=== PATIENT | male | born 1960 | race Caucasian/White ===

== ENCOUNTER → 2018-07-03 09:15 | Outpatient (CLI) | payer OTHER, SELFPAY ==
--- NOTE | 2018-07-03 09:15 | LES_PTH ---
PATIENT: PADMAJA HUFFMAN Jr. LOC: [facility] U#:[id number] AGE/SX: 64/M ROOM: RE07/03/[address]: Dr. Darvin Mcdowell MD : 1960 BED: DIS: SPEC #: [id number] RECD: 07/04/18 17:37 STATUS: SANA KAL #: [id number] MELODY: 07/03/18 09:[address]: Darvin Mcdowell DEPT: SURGICAL PATHOLOGY RECD BY: Hunter Uribna Tissues: Eye, NOS Procedures: Surgery Specimen Level IV HEADER OPERATION: Excision pterygium with conjunctival graft left eye PRE-OP DIAGNOSIS: Pterygium, left eye TISSUE SUBMITTED: Pterygium, left eye MICROSCOPIC DIAGNOSIS Lesion of left eye, biopsy: Consistent with pterygium. AM:jovany 07/05/18 MICROSCOPIC DESCRIPTION Slides are reviewed. GROSS DESCRIPTION Received in fixative is one container labeled with the patient's name and designated pterygium, left eye. The specimen consists of a portion of translucent soft tissue measuring 0.4 x 0.3 x 0.2 cm. A small portion of possible skin is present. The specimen is totally submitted in one cassette. / CE:jovany 07/04/18 TC:5 CPT: 60468
== END ==
PROVIDERS: Referring Provider Ophthalmology; Visit Provider Ophthalmology
DX: H11.002 Unspecified pterygium of left eye (principal)
CPT/HCPCS: 88305

== ENCOUNTER 2020-06-18 22:16 | Emergency (ER) | payer OTHER, SELFPAY ==
[2020-06-18 22:17] VITALS: BP 141/83; PULSE 75; RESP 19; TEMP 36.6; O2SAT 98; BMI 24.4
--- NOTE | 2020-06-18 22:50 | RAD_ITS ---
HISTORY: fall Exam: Left Shoulder 4 images COMPARISON: None FINDINGS: # of images incl. paperwork: 4 XR Shoulder Min 2 Views: The humeral head is well-positioned within the glenoid fossa. No fracture or subluxation. The acromioclavicular joint is normal. The adjacent chest is unremarkable. RAD/Shoulder min 2 Views IMPRESSION: Normal Left shoulder. at 2342 Reported and signed by: Elan Ruiz MD Electronically Signed: Elan Ruiz MD at 23:41 EDT Tel , Service support ,
--- NOTE | 2020-06-18 22:50 | RAD_ITS ---
HISTORY: fall Technique: 4 images of the left femur Comparison: None Findings: The no acute fracture is perceived. The patient has a left total hip prosthesis. The prosthesis appears to be adequately positioned. Osseous mineralization, joint spaces, and alignment otherwise appear preserved as imaged. No focal abnormality or radiopaque foreign body is seen in the surrounding soft tissues. RAD/Femur Min 2 Views IMPRESSION: No acute osseous abnormality identified in the thigh. at 2328 Reported and signed by: Elan Ruiz MD Electronically Signed: Elan Ruiz MD at 23:27 EDT Tel , Service support ,
--- NOTE | 2020-06-18 23:55 | EDS_ITS ---
HPI HPI - Fall History of Present Illness Chief Complaint: Fall Informant: patient Occured/Mechanism Occurred: Today Mechanism/Context: Yes slip Fall down steps #: 1-2 Pain/Injury Location: L thigh, L shoulder Current Severity: Mild Maximum Severity: Moderate Worsened by: moving L shoulder/arm Relieved by: remaining still Associated Symptoms Associated Symptoms: Negative for Parasthesias, Weakness, Inability to ambulate and Loss of consciousness Narrative Narrative: Patient was at work at the local [employer], states that he slipped on a step, falling backward toward his buttocks and somehow used his left upper extremity to help break his fall, injuring his shoulder. He is having trouble moving it in certain directions. No other injuries, did not hit his head. PFSH PFSH no medical history Allergy/AdvReac Type Severity Reaction Status Date / Time No Known Allergies Allergy Verified 06/18/20 22:21 Social History (Updated 06/18/20 @ 23:[address] Adrien Green MD) details: None today substance use type: does not use ROS ROS ED Constitutional Constitutional ED: Denies chills or fever(s) Musculoskeletal Musculoskeletal: Reports extremity pain; Denies neck pain Integumentary Denies Abrasions, rash or wounds Neurologic Neurologic: Denies paresthesias or weakness EXAM Physical Exam Const Vital Signs: 06/18/20 22:17 Temperature 97.9 F Temperature Source Temporal Pulse Rate 75 Respiratory Rate 19 H Blood Pressure 141/83 H Blood Pressure Mean 102 Pulse Ox 98 Oxygen Delivery Method Room Air Positive well nourished and well developed General Appearance ED: well developed and NAD HEENT Reports normocephalic atraumatic Neck full ROM and supple Chest Wall inspection of chest normal Resp normal respiratory effort Back/Spine normal ROM and normal to inspection Extremity Extremity Narrative: Mildly tender in the left thigh. No hematomas, deformities, hip or buttock or knee tenderness. All compartments soft and n ondistended. In the left shoulder, he has limited abduction due to pain but he can go to about 20 or 30 degrees. There is no significant pain with subscapularis motion, but with supraspinatus he is very limited. No deformities. Mild proximal humerus tenderness, no acromioclavicular tenderness. Neuro oriented x3, no focal motor deficits and no sensory deficits noted Sensorium / Orientation: alert Psych mental status grossly normal and thought process normal Skin no wounds Rashes: no rashes MDM MDM MDM Narrative Medical decision making narrative: On my interpretation, 2 view x-ray of the left femur and 3 view x-ray of the left shoulder are normal. Radiology in agreement. Patient was reassured, he was given Tylenol and does not need anything more right now. I gave him restrictions and advised him to follow-up with Workmen's Comp., he certainly may have internal derangement of the left shoulder. Also regular contusion/strain is in the differential. Advised using pain as his guide and not 14 3 things right now until he follows up. Radiography Diagnostic Testing: Radiology Impression Femur X-Ray 06/18/20 22:50 IMPRESSION: No acute osseous abnormality identified in the thigh. at 2328 Reported and signed by: Elan Ruiz MD Electronically Signed: Elan Ruiz MD at 23:27 EDT Tel , Service support , Shoulder X-Ray 06/18/20 22:50 IMPRESSION: Normal Left shoulder. at 2342 Reported and signed by: Elan Ruiz MD Electronically Signed: Elan Ruiz MD at 23:41 EDT Tel , Service support , Discharge Plan Triage Chief Complaint: Fall ED Provider: Adrien Green Dx/Rx/DC Orders Clinical Impression: Left shoulder strain, Contusion of left hip and thigh Instructions: ED Shoulder Sprain Stand Alone Forms: Work Status Form Primary Care Provider: Care Physician,No Primary Referrals: Corporate,Care [GROUP OF PHYSICIANS] - 2 Days Disposition Disposition: Home, self care
[2020-06-19 00:56] VITALS: PULSE 70; RESP 13; O2SAT 98
== END 2020-06-19 00:57 | disposition home or self-care (01) ==
PROVIDERS: Emergency Provider Emergency Medicine
DX: S46.912A Strain of unspecified muscle, fascia and tendon at shoulder and upper arm level, left arm, initial encounter (principal); S70.02XA Contusion of left hip, initial encounter; S70.12XA Contusion of left thigh, initial encounter; W10.9XXA Fall (on) (from) unspecified stairs and steps, initial encounter; Y93.9 Activity, unspecified; Y92.214 College as the place of occurrence of the external cause; Y99.0 Civilian activity done for income or pay
CPT/HCPCS: 73030; 73552; 99282

== ENCOUNTER → 2020-06-29 09:33 | Outpatient (CLI) | payer OTHER, SELFPAY ==
[2020-06-22 07:15] VITALS: BMI 24.4
--- NOTE | 2020-06-29 09:34 | MRI_ITS ---
STUDY: MRI LEFT SHOULDER REASON FOR EXAM: Left shoulder pain for 8-9 days, left shoulder injury. TECHNIQUE: Standardized fat and water weighted pulse sequences were obtained in all 3 orthogonal planes. COMPARISON: Radiographs 06/18/2020. FINDINGS: There is a full-thickness tear of the supraspinatus tendon retracted approximately 3 cm (T2 coronal images 7-12). There is infraspinatus tendinosis (T2 sagittal image 11) without discrete tendon tear. Normal subscapularis tendon. Normal teres minor tendon. There is mild edema in the distal supraspinatus muscle. Normal infraspinatus muscle. Normal subscapularis muscle. Normal teres minor muscle. There is a small glenohumeral joint effusion. There is mild cystic change/bone edema of the greater tuberosity. Normal biceps labral complex. Normal intracapsular long biceps tendon. Normal labrum. Normal capsulo- ligamentous complex. Normal acromioclavicular articulation. There is a Type II morphology (curved), with a neutral orientation. There is subacromial-subdeltoid bursal fluid. Normal visualized coracohumeral and coracoacromial ligaments. Normal deltoid muscle. Normal trapezius muscle. MRI/Upper Ext Joint Only(Routine) IMPRESSION: Full-thickness tear of the supraspinatus tendon. Infraspinatus tendinosis. Glenohumeral joint fluid communicating with the subacromial-subdeltoid bursa. Electronically Signed: Hero Griffin MD at 11:39 EDT Tel , Service support ,
== END ==
PROVIDERS: Referring Provider Physician Assistant Surgical; Visit Provider Physician Assistant Surgical
DX: S46.012A Strain of muscle(s) and tendon(s) of the rotator cuff of left shoulder, initial encounter (principal); X58.XXXA Exposure to other specified factors, initial encounter
CPT/HCPCS: 73221

== ENCOUNTER → 2024-03-21 | Outpatient (CLI) | payer OTHER, SELFPAY ==
--- NOTE | 2024-03-21 09:04 | RAD_ITS ---
EXAM: FEMUR MIN 2 VIEWS CLINICAL HISTORY: Pain following a fall. COMPARISON: Comparison is made with prior study dated June 18, 2020. TECHNIQUE: Four views of the right femur were obtained. FINDINGS: There is deformity of the right femoral neck with the widening suggestive of right femoral acetabular impingement. Mild degree of joint space narrowing. RAD/Femur Min 2 Views IMPRESSION: No fracture or dislocation is seen. 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 Reading Location: [place] [id number]
--- NOTE | 2024-03-21 09:04 | RAD_ITS ---
EXAM: KNEE 4 OR MORE VIEWS CLINICAL HISTORY: Leg pain following a fall. COMPARISON: None. TECHNIQUE: Four views of the knee were obtained. FINDINGS: Calcification of the lateral meniscus in keeping with chondrocalcinosis. No bony abnormality is seen. RAD/Knee 4 or More Views IMPRESSION: No bony abnormality is seen. Findings suggestive of chondrocalcinosis of the l ateral meniscus. Reading Location: [facility]
== END | disposition home or self-care (01) ==
PROVIDERS: PCP Family Medicine; Referring Provider Physician Assistant Surgical; Visit Provider Physician Assistant Surgical
DX: S80.01XA Contusion of right knee, initial encounter (principal); S70.11XA Contusion of right thigh, initial encounter; W19.XXXA Unspecified fall, initial encounter
CPT/HCPCS: 73552; 73564

== ENCOUNTER → 2024-04-01 | Outpatient (CLI) | payer OTHER, SELFPAY ==
--- NOTE | 2024-04-01 11:02 | VDLE_ITS ---
Reason For Study Reason For Study: Swelling RLE RIGHT LEFT GSV is normal. CFV is compressible, spontaneous, phasic, competent, CFV is compressible, spontaneous, phasic, competent and demonstrates normal augmentation. and demonstrates normal augmentation. FV is compressible, spontaneous, phasic, competent and demonstrates normal augmentation. POP V is compressible, spontaneous, phasic, competent and demonstrates normal augmentation. T/P Trunk is compressible. PTV is compressible. RT PerV is compressible. Procedure This is a venous duplex using B-mode, color flow and spectral Doppler. Exam performed in department. A preliminary report was called and/or faxed to Luca SPANN. VL/Venous Duplex US, Unilateral Interpretation Summary Deep veins of the right lower extremity are patent and compressible segmentally . There is no evidence of right lower extremity deep vein thrombosis. Valvular competence appears intact within the p roximal deep venous system on the right . The right great saphenous vein appears patent and compressible segmentally. The left common femoral vein is patent and compressible . Ordering Physician: Luca Campuzano Referring Physician: Claus Mcintyre Performed By: Yenni Wilson, MOISÉS, RVT
== END | disposition home or self-care (01) ==
LOC: CVS 10:59
PROVIDERS: PCP Family Medicine; Referring Provider Physician Assistant Surgical; Visit Provider Physician Assistant Surgical
DX: S80.01XA Contusion of right knee, initial encounter (principal); S70.11XA Contusion of right thigh, initial encounter; M79.89 Other specified soft tissue disorders; M79.604 Pain in right leg; X58.XXXA Exposure to other specified factors, initial encounter
CPT/HCPCS: 93971

== ENCOUNTER 2024-04-29 07:44 | Emergency (ER) | payer OTHER, SELFPAY ==
[2024-04-29 07:45] VITALS: BP 121/90; PULSE 62; RESP 16; TEMP 36.7; O2SAT 100; BMI 25.3
--- NOTE | 2024-04-29 08:01 | ED.RN ---
c/o of left sided flank pain. came [facility]. started last night around 1900
--- NOTE | 2024-04-29 08:20 | EX.ED.DYSGE1 ---
HPI History of Present Illness Chief Complaint: Flank Pain Informant: patient and spouse/S.O. Narrative Narrative: 63-year-old male presenting to the emergency room with back pain. Patient states that yesterday morning he got up felt pretty good when ran errands. Late in the afternoon he laid down. In the evening hours he began to have any pain which describes as a feeling that somebody has punched him in his left flank. He denies any radiation to the abdomen. No urinary symptoms. No change in bowel habits. He denies any fever or rash. No radiation to the legs. He notes that several months ago he fell off a ladder and has been doing some rehabilitation for his right leg. Other than that he does not recall any trauma and his back was not hurting in this area after that point. He notes no other trauma or injury. He notes a history of seizure and takes Dilantin. [facility] Medical History Seizures Home Medications ?Medication ?Instructions ?Recorded ?Last Taken ?Type phenytoin sodium extended 100 mg 100 mg PO DAILY 06/19/20 04/28/24 History capsule (Dilantin Extended) Allergy/AdvReac Type Severity Reaction Status Date / Time No Known Allergies Allergy Verified 04/29/24 08:01 Social History Smoking Status: Former smoker details: None today substance use type: does not use ROS ROS ED Constitutional Constitutional ED: Denies chills, fever(s) or weight loss Eyes Eyes: Denies change in vision or diplopia ENT ENT ED: Denies ear pain, rhinorrhea or sore throat Cardiovascular Cardiovascular: Denies chest pain, orthopnea, palpitations or racing heartbeat Respiratory/Chest Respiratory/Chest: Denies cough, dyspnea or orthopnea Gastrointestinal Gastrointestinal: Denies abdominal pain, constipation, diarrhea, nausea or vomiting Genitourinary Genitourinary ED: Denies dysuria, hematuria or urinary frequency Musculoskeletal Musculoskeletal: Reports back pain; Denies arthralgias or myalgias Integumentary Denies abscess or rash Neurologic Neurologic: Denies headache(s), paresthesias or weakness Psychiatric Psychiatric: Denies anxiety, depression, suicidal ideation or suicidal thoughts Endocrine Endocrinology: Denies polydipsia, polyphagia or polyuria Allergic/Immunologic Allergic/Immunologic ED: Denies mouth swelling, tongue swelling or urticaria EXAM Physical Exam Const Vital Signs: 04/29/24 07:45 04/29/24 09:00 04/29/24 10:17 Temperature 98.0 F 98.0 F Temperature Source Oral Oral Pulse Rate 62 57 L 59 L Respiratory Rate 16 16 16 Blood Pressure 121/90 H 115/70 114/72 Blood Pressure Mean 100 85 86 Pulse Ox 100 97 98 Oxygen Delivery Method Room Air Room Air Room Air 04/29/24 12:00 04/29/24 12:23 Temperature 97.4 F L Temperature Source Pulse Rate 59 L 59 L Respiratory Rate 16 16 Blood Pressure 120/74 120/74 Blood Pressure Mean 89 89 Pulse Ox 98 98 Oxygen Delivery Method Room Air Positive well nourished and well developed General Appearance ED: well developed and NAD HEENT Reports normocephalic, head/scalp atraumatic and moist mucous membranes Eyes PERRL and EOMs intact bilaterally Neck no lymphadenopathy, supple and no JVD Resp normal respiratory effort and clear to auscultation bilaterally Cardio regular rate, regular rhythm and no murmurs GI normal to inspection, nondistended, normoactive bowel sounds and non-tender Palpation: soft Back/Spine no CVA tenderness and normal ROM Back/Spine Narrative: Patient points to the lower left lumbar paraspinal musculature region as area that hurts. When I palpate he states that the spot but then also states that pushing on it does not really hurt. I do not appreciate any rashes or ecchymosis. No crepitance subcu air. Extremity normal to inspection General Extremety ED: Negative for edema General Extremity: Negative for edema Neuro oriented x3 and CN's II-XII intact bilaterally Sensorium / Orientation: alert Motor Exam: strength 5/5 throughout Psych mental status grossly normal Mood & Affect: Negative for depressed or tearful Skin no rashes or lesions noted and no wounds MDM MDM MDM Narrative Medical decision making narrative: Differential diagnosis includes but not limited to UTI ureterolithiasis pyelonephritis shingles colitis diverticulitis retroperitoneal hematoma psoas muscle hematoma back spasm lumbar myofascial strain renal infarct splenic infarct Patient's white count is normal at 7.1 no left shift. Normal creatinine. Urinalysis no overt infection. Because he is on Dilantin Dilantin order was obtained and this is 7.5. CT then pelvis with IV contrast was obtained. This was read by radiology reviewed by myself. I do not see an acute intra-abdominal emergency on the CT read. I spoke with the patient is he is very tender over the lumbar muscles this could be musculoskeletal in nature. I would recommend heat gentle stretching and rest. If he is worsening such as rash fever or neurologic symptoms he needs to return to the emergency department. History & Record Review Discussion w/independent historian: Patient and Significant other Lab Data Attestation: I reviewed the patient's lab results. Labs: Laboratory Results - last 24 hr 04/29/24 04/29/24 08:12 08:30 WBC 7.1 RBC 4.85 Hgb 15.0 Hct 44.3 MCV 91.3 MCH 30.9 MCHC 33.9 RDW Std Deviation 45.3 H RDW Coeff of Lisette 13.5 Plt Count 204 MPV 9.1 Immature Gran % (Auto) 0.400 Neut % (Auto) 62.3 Lymph % (Auto) 28.1 Shoshone % (Auto) 6.2 Eos % (Auto) 2.3 Baso % (Auto) 0.7 Absolute Neuts (auto) 4.4 Absolute Lymphs (auto) 1.98 Nucleated RBC % 0 Sodium 139 Potassium 3.8 Chloride 101 Carbon Dioxide 28.5 Anion Gap 9 BUN 17 Creatinine 1.00 Estim Creat Clear Calc 82.99 Est GFR (MDRD) Non-Af 85 BUN/Creatinine Ratio 16.6 Glucose 101 H Calcium 9.4 Urine Color Yellow Urine Clarity Clear Urine pH 6.5 Ur Specific Mercer 1.015 Urine Protein 30 H Urine Glucose (UA) Normal Urine Ketones Negative Urine Occult Blood 10 H Urine Nitrite Negative Urine Bilirubin Negative Urine Urobilinogen Normal Ur Leukocyte Esterase Negative Urine RBC 0-5 SEEN Urine WBC 0-5 SEEN Ur Squamous Epith Cells 0 SEEN Urine Bacteria 0 SEEN Urine Mucus 0 SEEN Phenytoin 7.5 L Radiography Diagnostic Testing: Clinical Impression(s) from Imaging Studies Abdomen/Pelvis CT 04/29/24 10:50 IMPRESSION: 1. The prostate gland is enlarged. Correlation with PSA values may be helpful if not previously performed. 2. Small esophageal hiatal hernia. 3. Hepatomegaly with fatty infiltration. 4. No obstructive uropathy. 5. Fecal retention in the colon consistent with constipation. Reading Location: [facility] Discharge Plan Triage Chief Complaint: Flank Pain ED Provider: Khari Castro Dx/Rx/DC Orders Clinical Impression: Acute left flank pain Instructions: ED Back Spasm, No Trauma, ED Flank Pain, Uncertain Cause Prescriptions: No Action phenytoin sodium extended [Dilantin Extended] 100 mg Capsule 100 mg PO DAILY Primary Care Provider: Miguelina Cochran Referrals: Miguelina Cochran, [Primary Care Provider] - 3-5 Days if not improving Print Language: Maori Disposition Disposition: Home, Self Care Discharge Date/Time: 04/29/24 12:59
[2024-04-29] MEDS: Ketorolac 30 MG/ML Syringe IV (08:31)
[2024-04-29] MEDS: Morphine 4 MG/ML Syringe IV (08:31)
[2024-04-29 08:33] LABS: Absolute Lymphocyte Count 1.98 X10^3/uL (0.83-4.51); Absolute Neutrophil Count 4.4 X10^3/uL (2.0-7.7); Basophil# 0.05 X10^3/uL; Basophil% 0.7 % (0-1); Eosinophil# 0.16 X10^3/uL; Eosinophils% 2.3 % (0-5); Hematocrit 44.3 % (40-54); Lymphocyte # 1.98 X10^3/ul (0.83-4.51); Lymphocyte % 28.1 % (19-41); Mean Corp Hgb Conc 33.9 g/dL (32-36); Mean Corpuscular Hgb 30.9 pg (27.0-32.0); Mean Corpuscular Volume 91.3 fL (80-94); Mean Platelet Vol. 9.1 fl (6.2-12.0); Monocyte# 0.44 X10^3/uL; Monocyte% 6.2 % (0-10); NRBC Flagged by Analyzer 0 % (0-5); Neutrophil # 4.39 X10^3/uL (2.7-7.7); Neutrophil % 62.3 % (47-70); Platelet Count 204 K/mm3 (150-450); RBC Distribution Width CV 13.5 % (11.6-14.6); RBC Distribution Width SD 45.3 fl (35.1-43.9); Red Blood Count 4.85 M/mm3 (4.6-6.2); White Blood Count 7.1 K/mm3 (4.4-11.0)
[2024-04-29 08:34] LABS: Bacteria 0 SEEN /hpf (None Seen); Mucous, Urine 0 SEEN /hpf (<or=2+); Squamous Epithelial Cells - UA 0 SEEN /hpf (0-5)
[2024-04-29 08:50] LABS: Color, Urine Yellow (Yellow); Glucose, Dipstick Normal (Normal); Ketone-Dipstick Negative (Negative); Leukocyte Esterase-Dipstick Negative /ul (Negative); Nitrite-Dipstick Negative (Negative); Occult Blood-Urine 10 /ul (Negative); Protein-Dipstick 30 mg/dl (Negative); Specific Gravity, Urine 1.015 (1.002-1.030); Urine Bilirubin Dipstick Negative (Negative); Urine Clarity Clear (Clear); Urine Urobilinogen Normal (Normal); Urine pH 6.5 (5.0 - 8.0)
[2024-04-29 08:57] LABS: Phenytoin (Dilantin) Level 7.5 ug/mL (10.0-20.0)
[2024-04-29 09:00] VITALS: BP 115/70; PULSE 57; RESP 16; TEMP 36.7; O2SAT 97
[2024-04-29 09:14] LABS: Red Blood Cells-Urine 0-5 SEEN /hpf (0-5); White Blood Cells 0-5 SEEN /hpf (0-5)
[2024-04-29 10:17] VITALS: BP 114/72; PULSE 59; RESP 16; O2SAT 98
[2024-04-29 10:24] LABS: BUN 17 mg/dL (4-19); BUN/Creat Ratio 16.6 RATIO (10-20); Calcium,Total 9.4 mg/dL (7.6-11.0); Carbon Dioxide 28.5 mmol/L (21.0-32.0); EST Glomerular Filtration Rate 85 (>60); Estimated Creatinine Clearance 82.99 ml/min (50-250); Glucose 101 mg/dL (70-99)
--- NOTE | 2024-04-29 10:50 | CT_ITS ---
EXAM: CT Abdomen, Pelvis and Lumbar Spine With Intravenous Contrast CLINICAL INDICATION: LEFT FLANK PAIN TECHNIQUE: Axial computed tomography images of the abdomen, pelvis and lumbar spine with intravenous contrast. This CT exam was performed using one or more of the following dose reduction techniques: automated exposure control, adjustment of the mA and/or kV according to patient size, and/or use of iterative reconstruction technique. COMPARISON: No relevant prior studies available. FINDINGS: LUNG BASES: Unremarkable. No mass. No consolidation. MEDIASTINUM: Small esophageal hiatal hernia. ABDOMEN: LIVER: Hepatomegaly with fatty infiltration. GALLBLADDER AND BILE DUCTS: Unremarkable. No calcified stones. No ductal dilation. PANCREAS: Unremarkable. No mass. No ductal dilation. SPLEEN: Unremarkable. No splenomegaly. ADRENALS: Unremarkable. No mass. KIDNEYS AND URETERS: Bilateral renal cysts. No stones within either kidney. No hydronephrosis. STOMACH AND BOWEL: Fecal retention in the colon consistent with constipation. No obstruction. No mucosal thickening. PELVIS: APPENDIX: No findings to suggest acute appendicitis. BLADDER: Unremarkable. No mass. REPRODUCTIVE: The prostate gland is enlarged measuring 6.4 cm in maximum dimension. LUMBAR SPINE: VERTEBRAE: Unremarkable. No acute fracture. DISCS/SPINAL CANAL/NEURAL FORAMINA: No acute findings. No significant spinal canal stenosis. ABDOMEN and PELVIS: INTRAPERITONEAL SPACE: Unremarkable. No free air. No significant fluid collection. BONES/JOINTS: However, evaluation of the pelvis was limited secondary to beam hardening artifacts from the total left hip replacement. No acute fracture. No dislocation. SOFT TISSUES: Unremarkable. VASCULATURE: Unremarkable. No abdominal aortic aneurysm. LYMPH NODES: Unremarkable. No enlarged lymph nodes. CT/Abdomen/Pelvis W IV Cont ONLY IMPRESSION: 1. The prostate gland is enlarged. Correlation with PSA values may be helpful if not previously performed. 2. Small esophageal hiatal hernia. 3. Hepatomegaly with fatty infiltration. 4. No obstructive uropathy. 5. Fecal retention in the colon consistent with constipation. Reading [facility]
[2024-04-29 12:00] VITALS: BP 120/74; PULSE 59; RESP 16; O2SAT 98
[2024-04-29 12:18] LABS: Anion Gap 9 (5-15); Chloride 101 mmol/L (98-108); Potassium 3.8 mmol/L (3.3-5.1); Sodium Level 139 mmol/L (133-145)
[2024-04-29 12:23] VITALS: BP 120/74; PULSE 59; RESP 16; TEMP 36.3; O2SAT 98
== END 2024-04-29 12:59 | disposition home or self-care (01) ==
PROVIDERS: Emergency Provider Emergency Medicine; PCP Family Medicine; Visit Provider Emergency Medicine
DX: M54.50 Low back pain, unspecified (principal); Z87.891 Personal history of nicotine dependence
CPT/HCPCS: 74177; 80048; 80185; 81001; 85025; 96374; 96375; 99283; Q9967

== ENCOUNTER → 2024-05-18 | Outpatient (CLI) | payer OTHER, SELFPAY ==
--- NOTE | 2024-05-18 08:15 | MRI_ITS ---
EXAM: MRI right knee without IV contrast CLINICAL HISTORY: Pain, injury COMPARISON: None TECHNIQUE: Multisequence multiplanar MR images of the right knee were obtained without the administration of intravenous contrast. Imaging sequences were performed to best displaced suspected pathology. FINDINGS: Horizontal undersurface tear at the posterior body of the medial meniscus. Moderate free edge and undersurface fraying at the posterior root of the lateral meniscus. Increased intrasubstance signal in the anterior horn of the lateral with possible small horizontal tear contacting the superior articular surface. Small parameniscal cysts, conglomerate measuring 14 x 6 x 6 mm. Intact anterior cruciate ligament. Thickened posterior cruciate ligament with increased intrasubstance signal which may relate to partial tear versus mucoid degeneration. Medial collateral ligament is intact. Lateral collateral ligamentous complex is intact. Extensor mechanism is intact. Semimembranosus and pes anserine tendons are intact. Partial-thickness chondral fissure along the medial patellar facet. Full- thickness chondral defect along the inferior aspect of the trochlear groove measuring 6 x 10 mm. No focal chondral defects in the medial or lateral compartments. Small joint effusion without significant synovitis. Negative for fracture or marrow replacement. Mild degenerative bone marrow edema/subcortical cysts along the inferior trochlear groove. Mild edema along the superior aspect of Hoffa's fat pad. MRI/Lower Ext Joint Only (Routine) IMPRESSION: 1. Tears of the medial and lateral meniscus as above. 2. Thickened posterior cruciate ligament with increased signal which may relate to mucoid degeneration or partial tear. 3. Mild patellofemoral osteoarthritis as above. 4. Small joint effusion. Mild edema in the superior aspect of Hoffa's fat pad. Reading Location: [facility]
--- NOTE | 2024-05-18 11:00 | MRI_ITS ---
EXAM: MRI right thigh without IV contrast CLINICAL HISTORY: Pain, injury COMPARISON: None TECHNIQUE: Multisequence multiplanar MR images of the right thigh were obtained without the administration of intravenous contrast. Imaging sequences were performed to best display suspected pathology. FINDINGS: Bone marrow signal is within normal limits and without evidence of fracture or marrow replacement. Visualized tendons are intact. Muscle bulk is preserved. No intramuscular edema/tear. Superficial soft tissues are within normal limits. Moderate right hip osteoarthritis including superior [id number] articulation and marginal osteophytes. Enlarged prostate gland. MRI/Lower Ext/No Jt/w/o IMPRESSION: 1. No acute process. 2. Moderate right hip osteoarthritis. 3. Prostatomegaly. Reading Location: [facility]
== END | disposition home or self-care (01) ==
LOC: MRI 08:04
PROVIDERS: PCP Family Medicine; Referring Provider Physician Assistant Surgical; Visit Provider Physician Assistant Surgical
DX: S70.11XA Contusion of right thigh, initial encounter (principal); X58.XXXA Exposure to other specified factors, initial encounter
CPT/HCPCS: 73718; 73721